=== PATIENT | male | born 1990 | race African-American/Black ===

== ENCOUNTER 2024-01-14 18:57 | Emergency (ER) | payer SELFPAY ==
[~2024-01-14] VITALS: Ht 177.8 cm; Wt 75.0 kg
[2024-01-14 19:08] VITALS: BP 142/96; PULSE 64; RESP 16; TEMP 98.1; O2SAT 100
== END 2024-01-14 21:00 | disposition left against medical advice (07) ==
LOC: ER 20:22
DX: Z04.1 Encounter for examination and observation following transport accident (principal); Z53.21 Procedure and treatment not carried out due to patient leaving prior to being seen by health care provider
CPT/HCPCS: 99281